=== PATIENT | female | born 1995 | race Caucasian/White ===

== ENCOUNTER → 2017-08-19 | Outpatient (CLI) | payer MEDICAID ==
[~2017-08-19] MED LIST: FLAG500T PO; IBUP-1022 PO; LEVO500T3 PO; OXYC1TAB23 PO; STUACAP PO
== END ==
LOC: M LAB 15:24
PROVIDERS: ATTEND Obstetrics & Gynecology Gynecology
DX: Z33.1 Pregnant state, incidental (principal)

== ENCOUNTER → 2017-08-21 | Outpatient (CLI) | payer MEDICAID, OTHER | LOC: M LAB 15:37 | PROVIDERS: ATTEND Obstetrics & Gynecology Gynecology | DX: Z33.1 Pregnant state, incidental (principal) ==

== ENCOUNTER → 2018-11-22 | Outpatient (CLI) | payer MEDICAID, OTHER, SELFPAY ==
[2018-11-22 16:15] LABS: BASO % 0.1 % (0.0-1.0); EOS # 0.1 10^3/uL (0.0-0.50); EOS % 1.6 % (0.0-3.0); HEMOGLOBIN 12.6 g/dl (12.0-15.5); LYMPH # 1.9 10^3/uL (1.5-6.5); LYMPH % 22.2 % (24.0-44.0); MEAN CORPUSCULAR HEMOGLOBIN 29.8 pg (27.0-33.0); MEAN CORPUSCULAR HGB CONC 34.1 g/dl (32.0-36.5); MEAN CORPUSCULAR VOLUME 87.5 fl (80.0-96.0); MONO # 0.4 10^3/uL (0.0-0.8); MONO % 4.6 % (0.0-5.0); NEUTROPHILS # 5.9 10^3/uL (1.8-7.7); PLATELET COUNT, AUTOMATED 317 10^3/uL (150-450); RED BLOOD COUNT 4.23 10^6/uL (4.00-5.40); WHITE BLOOD COUNT 8.3 10^3/uL (4.0-10.0)
[2018-11-22 18:11] LABS: CHLAMYDIA DNA AMPLIFICATION NEGATIVE (NEGATIVE); GC DNA AMPLIFICATION NEGATIVE (NEGATIVE)
[2018-11-23 10:27] LABS: HEPATITIS C VIRUS ABY INDEX 0.1 INDEX (<0.8); HIV 1&2 SCREEN CENTAUR NEGATIVE (NEGATIVE); RUBELLA IgG QUALITATIVE IMMUNE (IMMUNE)
== END ==
LOC: M LAB 14:04
PROVIDERS: ATTEND Advanced Practice Midwife
DX: Z36.89 Encounter for other specified antenatal screening (principal); Z3A.08 8 weeks gestation of pregnancy

== ENCOUNTER → 2018-12-14 | Outpatient (CLI) | payer OTHER ==
--- NOTE | 2018-12-14 16:03 | REP ---
Clinical: Anatomical evaluation. Comparison: None . Findings: Examination demonstrates a single live intrauterine in breech presentation. motion is identified by technologist. Placenta is noted anterior and grade grade 1 without evidence for placenta previa or abruption. Amniotic fluid volume is normal. Cervix measures 4.1 cm in length and appears closed. No evidence for nuchal cord. Gestational age by current measurements 18 weeks 0 days with ADALGISA 05/17/2019 . FHR equals 147 beats per minute. BPD 3.9 cm 17 weeks 6 days HC 15.0 cm 18 weeks 1 day AC 12.9 cm 18 weeks 3 days FL 2.7 cm 18 weeks 2 days HL 2.8 cm 19 weeks 0 days HC/AC ratio 1.17 Estimated weight 233 grams ( 56 percentile). Anatomical assessment demonstrates normal structures including cranium, cavum, cerebellum/posterior fossa, facial features, lungs, four-chamber heart/ventricular outflow tracts, diaphragm, stomach, cord insertion/three-vessel cord, kidneys/bladder, spine, and extremities. Small bilateral choroid plexus cysts noted. Impression: Single live intrauterine in breech presentation demonstrating normal growth. Small bilateral choroid plexus cysts warrant followup. Remainder of the anatomical assessment is complete and normal. Electronically Signed by Brandon Carrasco MD 12/14/2018 03:55 P
== END ==
LOC: M SMT 13:47
PROVIDERS: ATTEND Advanced Practice Midwife
DX: Z34.82 Encounter for supervision of other normal pregnancy, second trimester (principal); Z3A.18 18 weeks gestation of pregnancy

== ENCOUNTER → 2019-04-17 | Outpatient (REF) | payer OTHER ==
[~2019-04-17] MED LIST changes: +PRENTAB55 PO
== END ==
LOC: M LAB REF 17:00
PROVIDERS: ATTEND Specialist
DX: Z34.83 Encounter for supervision of other normal pregnancy, third trimester (principal)

== ENCOUNTER 2019-05-08 05:47 | Inpatient (IN) | payer OTHER ==
[~2019-05-08] VITALS: Ht 165.1 cm; Wt 93.4 kg
[2019-05-08] VITALS (12 sets, daily range): BP systolic 114–184; BP diastolic 57–118
[2019-05-08] MEDS ORDERED: LACTATED RINGER'S 1000 ML IV ONE (06:00)
[2019-05-08] MEDS ORDERED: BICITRA 30ML SOLN UDC PO ONE (06:00)
[2019-05-08 06:57] LABS: HEMATOCRIT 32.4 % (36.0-47.0); HEMOGLOBIN 10.4 g/dl (12.0-15.5); MEAN CORPUSCULAR HEMOGLOBIN 26.9 pg (27.0-33.0); MEAN CORPUSCULAR HGB CONC 32.1 g/dl (32.0-36.5); MEAN CORPUSCULAR VOLUME 83.7 fl (80.0-96.0); PLATELET COUNT, AUTOMATED 273 10^3/uL (150-450); RED BLOOD COUNT 3.87 10^6/uL (4.00-5.40); WHITE BLOOD COUNT 9.6 10^3/uL (4.0-10.0)
[2019-05-08] MEDS ORDERED: LR 1,000 ML IV SCH (07:00)
[2019-05-08] MEDS ORDERED: MORPHINE PRES-FREE INJ 10 MG/10 ML VIAL (J2274) As Ordered ONE (07:11)
[2019-05-08] MEDS ORDERED: OXYTOCIN INJ 10 UNITS/ML VIAL (J2590) As Ordered ONE ×2 (07:14→08:06)
[2019-05-08] MEDS ORDERED: diphenhydrAMINE INJ 50MG/ML VIAL (J1200) IV PRN ×2 (07:37→09:10)
[2019-05-08] MEDS ORDERED: METOCLOPRAMIDE INJ 10MG/2ML VIAL (J2765) IV PRN (07:37)
[2019-05-08] MEDS ORDERED: NALBUPHINE HCL 10 MG/ML AMP (J2300) IV PRN ×2 (07:37→09:10)
[2019-05-08] MEDS ORDERED: ONDANSETRON 4MG/2ML VIAL (J2405) IV PRN ×3 (07:37→09:10)
[2019-05-08] MEDS ORDERED: NALOXONE INJ 0.4 MG/1 ML VIAL (J2310) IV PRN ×2 (07:37)
[2019-05-08] MEDS ORDERED: PHENYLephrine HCL 500 MCG/5 ML (100MCG/ML) SYRINGE (J2370) As Ordered ONE (07:46)
[2019-05-08] MEDS ORDERED: METOCLOPRAMIDE INJ 10MG/2ML VIAL (J2765) As Ordered ONE (07:46)
[2019-05-08] MEDS ORDERED: ONDANSETRON 4MG/2ML VIAL (J2405) As Ordered ONE (08:08)
[2019-05-08] MEDS ORDERED: KETOROLAC 60 MG/2 ML VIAL (J1885) As Ordered ONE (08:08)
[2019-05-08] MEDS ORDERED: OXYTOCIN DRIP 30 UNITS in APPROPRIATE DILUENT 1 EA IV SCH (08:37)
[2019-05-08] MEDS ORDERED: OXYC1TAB23 PO (08:45)
[2019-05-08] MEDS ORDERED: RHOGAM 300 MCG (1500 IU) INJ (J2790) IM SCH (08:45)
[2019-05-08] MEDS ORDERED: MEASLES,MUMPS,RUBELLA VACCINE INJ (MMR-II) (90707) SC SCH (08:45)
[2019-05-08] MEDS ORDERED: IBUP-1022 PO (08:46)
[2019-05-08] MEDS: PRENATAL VITAMINS CHEWABLE TABLET PO SCH (09:00)
[2019-05-08] MEDS ORDERED: OXYTOCIN 30 UNITS IN 0.9% NaCl 500ML IV BAG (J2590) As Ordered ONE (09:09)
[2019-05-08] MEDS ORDERED: PERCOCET 5MG/325MG TAB PO PRN (09:10)
[2019-05-08] MEDS ORDERED: fentaNYL 100 MCG/2 ML INJECTION (J3010) IV PRN (09:10)
[2019-05-08] MEDS ORDERED: HYDROMORPHONE HCL 0.5 MG/ 0.5 ML SYRINGE (J1170 PER 1) IV PRN (09:10)
[2019-05-08] MEDS: LR 1,000 ML IV SCH ×2 (09:13→16:37)
[2019-05-08] MEDS: KETOROLAC 30 MG/ML VIAL (J1885) IV SCH ×2 (14:15→20:16)
--- NOTE | 2019-05-08 17:59 | RO ---
DATE OF PROCEDURE: 05/08/2019 PREPROCEDURE DIAGNOSIS: 39 weeks, prior section times one. POSTPROCEDURE DIAGNOSIS: 39 weeks prior section times one. PROCEDURE: Repeat low transverse section. SURGEON: Dr. Les Thomas TEST AND TURN UP TECHNICIAN: Aliya Headley CNM ANESTHESIA: Spinal. ESTIMATED BLOOD LOSS: 600 mL. URINE OUTPUT: 100 mL. FINDINGS: 8 pound 6 ounce, 3800 gram female, scores 8 and 9. Normal uterus, fallopian tubes and ovaries. Adhesions of omentum to the anterior uterus and bladder. DESCRIPTION OF PROCEDURE: The patient was taken to the operating room where spinal anesthesia was induced. She was prepped and draped in a sterile fashion in the supine position. A Hong catheter was placed. A Pfannenstiel skin incision was made with a scalpel, carried through to the fascia. The fascia was nicked and extended. The peritoneal cavity was entered. A bladder flap was created. A curvilinear incision was made in the lower uterine segment until clear fluid was noted. This was extended manually. The was delivered from the vertex position with the single use of the vacuum extractor. Shoulders delivered with ease. The cord was doubly clamped and cut. The was handed off to awaiting nurses. The placenta was expressed. The uterus was exteriorized and cleared of clots and debris. Uterine incision was closed with #0 Vicryl in a running locked fashion. A second imbricating layer of #0 Vicryl was placed. The uterus was placed back in the abdominal cavity. Omental adhesions to the bladder and anterior uterus were taken down sharply. The peritoneum was closed with #2-0 Vicryl in a running fashion. The fascia was closed with #0 Vicryl in a running fashion. The deep layer was irrigated and closed with #2-0 chromic. The skin was closed with #4-0 Monocryl subcuticular sutures. Sponge, instrument, and needle counts were correct. Aliya Gallardo CNM, assisted with all aspects of the procedure. She was an integral part of the procedure. She helped create each layer of the incision using the hysterotomy. She helped with expulsion of the fetus and closure of all subsequent layers. [facility]ORER[facility]
[2019-05-08] MEDS: DOCUSATE SODIUM 100 MG CAP PO PRN (20:15)
[2019-05-09] MEDS: PERCOCET 5MG/325MG TAB PO PRN ×4 (00:53→20:10)
[2019-05-09 02:00] VITALS: BP 131/78
[2019-05-09] MEDS: KETOROLAC 30 MG/ML VIAL (J1885) IV SCH (02:13)
[2019-05-09 06:00] VITALS: BP 137/62
[2019-05-09 08:01] LABS: HEMATOCRIT 27.4 % (36.0-47.0); HEMOGLOBIN 8.7 g/dl (12.0-15.5); MEAN CORPUSCULAR HEMOGLOBIN 26.7 pg (27.0-33.0); MEAN CORPUSCULAR HGB CONC 31.8 g/dl (32.0-36.5); PLATELET COUNT, AUTOMATED 224 10^3/uL (150-450); RED BLOOD COUNT 3.26 10^6/uL (4.00-5.40); WHITE BLOOD COUNT 8.3 10^3/uL (4.0-10.0)
[2019-05-09 10:00] VITALS: BP 117/57
[2019-05-09] MEDS: PRENATAL VITAMINS CHEWABLE TABLET PO SCH (10:00)
[2019-05-09] MEDS: IBUPROFEN 800 MG TAB PO SCH ×2 (10:01→18:07)
[2019-05-09 14:00] VITALS: BP 128/61
[2019-05-09 18:00] VITALS: BP 122/74
[2019-05-09 22:00] VITALS: BP 129/63
[2019-05-10] MEDS: IBUPROFEN 800 MG TAB PO SCH ×2 (02:00→09:58)
[2019-05-10 05:00] VITALS: BP 121/67
[2019-05-10] MEDS: PRENATAL VITAMINS CHEWABLE TABLET PO SCH (08:33)
[2019-05-10] MEDS: DOCUSATE SODIUM 100 MG CAP PO PRN (08:33)
[2019-05-10] MEDS: PERCOCET 5MG/325MG TAB PO PRN (08:34)
--- NOTE | 2019-05-10 11:11 | DSES ---
DATE OF ADMISSION: 05/08/2019 DATE OF DISCHARGE: 05/10/2019 24-year-old 2, para 1 female at 39-1/7 weeks gestation who presented for elective repeat section. She has a history of one prior section. Her course was unremarkable. HOSPITAL COURSE: The patient was admitted on 05/08/2019 for a repeat section. She subsequently underwent a scheduled section for an 8 pound 6 ounce female , scores 8 and 9. The procedure was uncomplicated. Her postoperative course was unremarkable. She had adequate return of bladder and bowel function. Her postoperative hemoglobin was 8.7 grams per liter. She was deemed stable for discharged on postoperative day 2. ADMISSION DIAGNOSES: at term. Prior section. DISCHARGE DIAGNOSIS: Delivered. PROCEDURE: Repeat low transverse section. DISPOSITION: The patient will follow-up with Dr. Thomas in two weeks. Instructions were reviewed.
[2019-05-10 13:26] LABS: APPEARANCE, URINE CLOUDY (CLEAR); BACTERIA, URINE AUTO 1+ (NEGATIVE); BILIRUBIN, URINE AUTO NEGATIVE (NEGATIVE); BLOOD, URINE BLOOD 3+ (NEGATIVE); COLOR, URINE AMBER (YELLOW); GLUCOSE, URINE (UA) AUTO NEGATIVE (NEGATIVE); KETONE, URINE AUTO NEGATIVE (NEGATIVE); LEUKOCYTE ESTERASE, URINE AUTO 1+ (NEGATIVE); MUCUS, URINE SMALL (NEGATIVE); NITRITE, URINE AUTO NEGATIVE (NEGATIVE); PROTEIN, URINE AUTO 2+ mg/dL (NEGATIVE); RBC, URINE AUTO TNTC /HPF (0-3); SPECIFIC GRAVITY URINE AUTO 1.028 (1.002-1.035); SQUAMOUS EPITHELIAL CELL UR AU 18 /HPF (0-6); TRANSITIONAL EPITHELIAL AUTO 2 /HPF; UROBILINOGEN, URINE AUTO 0.2 mg/dL (0.0-2.0); WBC, URINE AUTO 105 /HPF (0-3)
[2019-05-10] MEDS ORDERED: NITROFURANTOIN (MACROBID) 100 MG CAP PO ONE (14:15)
[2019-05-10] MEDS ORDERED: IBUP80TA PO (14:45)
== END 2019-05-10 15:50 | disposition home or self-care (01) | DRG 540 ==
LOC: M LDI 05:47 → M OBS 10:30
PROVIDERS: ADMIT Specialist; ATTEND Specialist
PROC: 10D00Z1 Extraction of Products of Conception, Low, Open Approach (ICD-10-PCS; principal; 2019-05-08 07:30)
DX: O34.211 Maternal care for low transverse scar from previous cesarean delivery (principal); Z37.0 Single live birth; Z3A.39 39 weeks gestation of pregnancy

== ENCOUNTER → 2020-09-11 | Outpatient (REF) | payer MEDICAID ==
[~2020-09-11] MED LIST changes: +IBUP80TA PO
[2020-09-11 19:30] LABS: CHLAMYDIA DNA AMPLIFICATION NEGATIVE (NEGATIVE); GC DNA AMPLIFICATION NEGATIVE (NEGATIVE)
== END ==
LOC: M SFHCWAGY 17:03
PROVIDERS: ATTEND Advanced Practice Midwife
DX: R35.0 Frequency of micturition (principal); Z11.3 Encounter for screening for infections with a predominantly sexual mode of transmission

== ENCOUNTER → 2021-07-16 | Outpatient (REF) | payer OTHER | LOC: M WUC 19:56 | PROVIDERS: ATTEND Physician Assistant | DX: J06.9 Acute upper respiratory infection, unspecified (principal) ==

== ENCOUNTER → 2021-08-26 | Outpatient (CLI) | payer OTHER | LOC: M LAB 17:31 | PROVIDERS: ATTEND Obstetrics & Gynecology | DX: Z36.89 Encounter for other specified antenatal screening (principal); Z3A.01 Less than 8 weeks gestation of pregnancy ==

== ENCOUNTER → 2021-09-06 | Outpatient (CLI) | payer OTHER | LOC: M LAB 10:55 | PROVIDERS: ATTEND Obstetrics & Gynecology | DX: Z34.91 Encounter for supervision of normal pregnancy, unspecified, first trimester (principal); Z3A.01 Less than 8 weeks gestation of pregnancy ==

== ENCOUNTER → 2022-06-15 | Outpatient (REF) | payer OTHER, MEDICAID ==
[~2022-06-15] MED LIST changes: +LEVO1TAB39 PO; -LEVO500T3 PO
[2022-06-15 15:27] LABS: GC DNA AMPLIFICATION NEGATIVE (NEGATIVE)
== END ==
LOC: M SFHCWAGY 13:18
PROVIDERS: ATTEND Obstetrics & Gynecology
DX: Z11.3 Encounter for screening for infections with a predominantly sexual mode of transmission (principal); Z12.4 Encounter for screening for malignant neoplasm of cervix; Z77.9 Other contact with and (suspected) exposures hazardous to health

== ENCOUNTER → 2024-03-01 | Outpatient (REF) | payer OTHER | LOC: M SFHCWAGY 17:41 | PROVIDERS: ATTEND Nurse Practitioner Family | DX: Z12.4 Encounter for screening for malignant neoplasm of cervix (principal); R87.5 Abnormal microbiological findings in specimens from female genital organs ==

== ENCOUNTER → 2024-07-14 | Outpatient (REF) | payer OTHER ==
[2024-07-14 13:54] LABS: HEMOGLOBIN A1c 5.3 % (4.0-6.0)
[2024-07-14 14:00] LABS: THYROID STIMULATING HORMONE 3.208 uIU/ML (0.55-4.78)
[2024-07-14 14:02] LABS: ALBUMIN 3.6 G/DL (3.2-5.2); ALKALINE PHOSPHATASE 67 U/L (46-116); ALT/SGPT 45 U/L (7.0-40); AST/SGOT 16 U/L (<34); BILIRUBIN,TOTAL 0.6 MG/DL (0.3-1.2); BLOOD UREA NITROGEN 16 MG/DL (9-23); CALCIUM LEVEL 9.6 MG/DL (8.5-10.1); CARBON DIOXIDE LEVEL 24 MMOL/L (20-31); CHLORIDE LEVEL 110 MMOL/L (98-107); CHOLESTEROL LEVEL 245 MG/DL (<200); CHOLESTEROL RISK RATIO 6.78 (<5); CREATININE FOR GFR 0.73 MG/DL (0.55-1.30); GLOMERULAR FILTRATION RATE > 60.0 (>60); GLUCOSE, FASTING 97 MG/DL (60-100); HDL CHOLESTEROL 36.1 MG/DL (>40); LDL CHOLESTEROL 187.3 MG/DL (<100); NON-HDL-C 208.9 MG/DL; POTASSIUM SERUM 4.9 MMOL/L (3.5-5.1); SODIUM LEVEL 139 MMOL/L (136-145); TOTAL PROTEIN 7.3 G/DL (5.7-8.2); TRIGLYCERIDES LEVEL 108 MG/DL (<150)
== END ==
LOC: M LAB REF 13:00
PROVIDERS: ATTEND Physician Assistant
DX: E55.9 Vitamin D deficiency, unspecified (principal); Z11.9 Encounter for screening for infectious and parasitic diseases, unspecified; E66.9 Obesity, unspecified

== ENCOUNTER → 2024-07-14 | Outpatient (CLI) | payer OTHER | LOC: M LAB 16:25 | PROVIDERS: ATTEND Physician Assistant | DX: M25.562 Pain in left knee (principal) ==

== ENCOUNTER → 2024-08-03 | Outpatient (CLI) | payer OTHER | LOC: M RAD 14:55 | PROVIDERS: ATTEND Physician Assistant | DX: R05.9 Cough, unspecified (principal) ==

== ENCOUNTER → 2024-11-23 | Outpatient (REF) | payer OTHER ==
[2024-11-23 18:41] LABS: BLOOD UREA NITROGEN 15 MG/DL (9-23); CALCIUM LEVEL 9.9 MG/DL (8.5-10.1); CARBON DIOXIDE LEVEL 27 MMOL/L (20-31); CHLORIDE LEVEL 106 MMOL/L (98-107); CREATININE FOR GFR 0.66 MG/DL (0.55-1.30); GLOMERULAR FILTRATION RATE > 60.0 (>60); GLUCOSE, FASTING 97 MG/DL (60-100); POTASSIUM SERUM 4.9 MMOL/L (3.5-5.1); SODIUM LEVEL 139 MMOL/L (136-145)
[2024-11-23 18:43] LABS: THYROID STIMULATING HORMONE 2.635 uIU/ML (0.55-4.78)
[2024-11-23 19:12] LABS: HCG, SERUM QUALITATIVE NEGATIVE (NEGATIVE)
== END ==
LOC: M LAB REF 16:20
PROVIDERS: ATTEND Physician Assistant
DX: N92.6 Irregular menstruation, unspecified (principal)

== ENCOUNTER → 2024-11-29 | Outpatient (CLI) | payer OTHER | LOC: M RAD 12:15 | PROVIDERS: ATTEND Physician Assistant | DX: N92.6 Irregular menstruation, unspecified (principal) ==

== ENCOUNTER → 2025-01-10 | Outpatient (REF) ==
[2025-01-10 18:49] LABS: HEPATITIS B SURFACE ANTIGEN NEGATIVE (NEGATIVE)
[2025-01-10 19:02] LABS: HIV 1&2 SCREEN NEGATIVE (NEGATIVE)
[2025-01-10 19:10] LABS: HEPATITIS C VIRUS ABY INDEX 0.17 INDEX (<0.8)
[2025-01-12 17:17] LABS: HCV RNA QUANTITATION <15 NOT DETECTED IU/mL (NOT DETECTED); HCV RNA log10 <1.18 NOT DETECTED Log IU/mL (NOT DETECTED)
== END ==
LOC: M LAB REF 17:05
PROVIDERS: ATTEND Physician Assistant
DX: Z00.00 Encounter for general adult medical examination without abnormal findings (principal)

== ENCOUNTER → 2025-03-19 | Outpatient (REF) | payer OTHER | LOC: M LAB REF 10:32 | PROVIDERS: ATTEND Internal Medicine | DX: K59.09 Other constipation (principal) ==

== ENCOUNTER 2025-07-21 13:08 | Emergency (ER) | payer OTHER ==
[~2025-07-21] VITALS: Ht 167.6 cm; Wt 88.6 kg
[~2025-07-21 13:08] MED LIST changes: -IBUP-1022 PO; +IBUP600T42 PO
[2025-07-21 13:13] VITALS: TEMP 97.9
[2025-07-21] MEDS ORDERED: FAMO1TAB11 (13:20)
[2025-07-21] MEDS ORDERED: HYDR200T46 (13:20)
[2025-07-21 14:24] VITALS: BP 122/70; O2SAT 100
[2025-07-21] MEDS: ACETAMINOPHEN 325 MG TAB PO ONE (14:34)
[2025-07-21] MEDS ORDERED: METH-1165 PO (15:40)
[2025-07-21] MEDS ORDERED: MEDR4PAK PO (15:40)
== END 2025-07-21 15:55 | disposition home or self-care (01) ==
LOC: M ED 13:08
DX: S39.012A Strain of muscle, fascia and tendon of lower back, initial encounter (principal); X50.0XXA Overexertion from strenuous movement or load, initial encounter; J45.909 Unspecified asthma, uncomplicated; F41.9 Anxiety disorder, unspecified; M32.9 Systemic lupus erythematosus, unspecified; Y92.9 Unspecified place or not applicable; Y93.89 Activity, other specified; Y99.9 Unspecified external cause status; Z79.899 Other long term (current) drug therapy; Z88.0 Allergy status to penicillin; Z88.1 Allergy status to other antibiotic agents

== ENCOUNTER → 2025-07-24 | Outpatient (REF) | payer OTHER ==
[~2025-07-24] MED LIST changes: +FAMO1TAB11; +HYDR200T46; +MEDR4PAK PO; +METH-1165 PO
== END ==
LOC: M LAB REF 17:23
PROVIDERS: ATTEND Nurse Practitioner Family
DX: R30.0 Dysuria (principal)

== ENCOUNTER → 2025-08-20 | Outpatient (CLI) | payer OTHER | LOC: M RAD 16:27 | PROVIDERS: ATTEND Family Medicine Addiction Medicine | DX: M54.42 Lumbago with sciatica, left side (principal); M54.41 Lumbago with sciatica, right side ==

== ENCOUNTER → 2025-08-20 | Outpatient (CLI) | payer OTHER ==
[2025-08-20 18:58] LABS: BASO # 0.0 10^3/uL (0.0-0.2); BASO % 0.4 % (0.0-1.0); EOS # 0.2 10^3/uL (0.0-0.5); EOS % 2.0 % (0.0-3.0); LYMPH # 2.6 10^3/uL (1.5-5.0); LYMPH % 32.3 % (24.0-44.0); MONO # 0.6 10^3/uL (0.0-0.8); MONO % 7.8 % (2.0-8.0); NEUTROPHILS # 4.5 10^3/uL (1.5-8.5); NEUTROPHILS % 57.2 % (36.0-66.0); PLATELET COUNT, AUTOMATED 363 10^3/uL (150-450)
[2025-08-20 19:04] LABS: ERYTHROCYTE SEDIMENTATION RATE 14 mm/hr (0-20)
[2025-08-20 19:18] LABS: ALT/SGPT 22 U/L (7.0-40); AST/SGOT 15 U/L (<34); C REACTIVE PROTEIN QUANTITATIV < 0.50 MG/DL (<1.0); CALCIUM LEVEL 9.3 MG/DL (8.5-10.1); CARBON DIOXIDE LEVEL 24 MMOL/L (20-31); CHLORIDE LEVEL 105 MMOL/L (98-107); CREATININE FOR GFR 0.81 MG/DL (0.55-1.30); GLOMERULAR FILTRATION RATE > 90.0 (>60); POTASSIUM SERUM 4.3 MMOL/L (3.5-5.1); SODIUM LEVEL 139 MMOL/L (136-145)
== END ==
LOC: M LAB 16:23
PROVIDERS: ATTEND Physician Assistant
DX: M32.9 Systemic lupus erythematosus, unspecified (principal); M54.42 Lumbago with sciatica, left side; M54.41 Lumbago with sciatica, right side

== ENCOUNTER → 2025-09-19 | Outpatient (REF) | payer OTHER | LOC: M LAB REF 11:45 | PROVIDERS: ATTEND Physician Assistant | DX: R35.0 Frequency of micturition (principal) ==

== ENCOUNTER → 2025-10-01 | Outpatient (CLI) | payer OTHER ==
[2025-10-01 16:49] LABS: BASO # 0.0 10^3/uL (0.0-0.2); BASO % 0.2 % (0.0-1.0); EOS # 0.2 10^3/uL (0.0-0.5); EOS % 1.4 % (0.0-3.0); LYMPH # 2.1 10^3/uL (1.5-5.0); LYMPH % 19.4 % (24.0-44.0); MONO # 0.7 10^3/uL (0.0-0.8); MONO % 6.3 % (2.0-8.0); NEUTROPHILS # 7.7 10^3/uL (1.5-8.5); NEUTROPHILS % 72.3 % (36.0-66.0); PLATELET COUNT, AUTOMATED 340 10^3/uL (150-450)
[2025-10-01 17:14] LABS: ALT/SGPT 26 U/L (7.0-40); AST/SGOT 14 U/L (<34); CALCIUM LEVEL 9.1 MG/DL (8.5-10.1); CARBON DIOXIDE LEVEL 26 MMOL/L (20-31); CHLORIDE LEVEL 106 MMOL/L (98-107); CREATININE FOR GFR 0.67 MG/DL (0.55-1.30); GLOMERULAR FILTRATION RATE > 90.0 (>60); IRON (FE) 14 UG/DL (50-170); PERCENT SATURATION 3.4 % (13.2-45.0); POTASSIUM SERUM 4.0 MMOL/L (3.5-5.1); SODIUM LEVEL 142 MMOL/L (136-145)
[2025-10-01 17:16] LABS: TOTAL 25(OH) VITAMIN D 21.4 NG/ML (20.0-100.0); VITAMIN B12 LEVEL 280 PG/ML (211-911)
[2025-10-01 17:17] LABS: FREE T4 0.89 NG/DL (0.89-1.76)
== END ==
LOC: M LAB 16:06
PROVIDERS: ATTEND Physician Assistant
DX: R10.9 Unspecified abdominal pain (principal); D50.9 Iron deficiency anemia, unspecified

== ENCOUNTER → 2025-10-03 | Outpatient (CLI) | payer OTHER ==
[~2025-10-03] MED LIST changes: +ISOVUE-370 76% 100 ML VIAL ONE
== END ==
LOC: M PLAIMG 10:47
PROVIDERS: ATTEND Physician Assistant
DX: R10.9 Unspecified abdominal pain (principal)

== ENCOUNTER → 2025-11-04 | Outpatient (REF) | payer OTHER ==
[~2025-11-04] MED LIST changes: -ISOVUE-370 76% 100 ML VIAL ONE
== END ==
LOC: M LAB REF 19:22
PROVIDERS: ATTEND Registered Nurse
DX: R10.A2 Flank pain, left side (principal)